=== PATIENT | male | born 1985 | race African-American/Black ===

== ENCOUNTER 2021-11-13 03:41 | Emergency (ER) | payer OTHER ==
[~2021-11-13] VITALS: Ht 177.8 cm; Wt 79.5 kg
[~2021-11-13 03:41] MED LIST: MED FOR NIGHTMARES; MOTRIN 800800 MG/TAB PO; PERCOCET 325 MG1 TA2 PO; PHENERGAN 25 TA25 MG PO
[2021-11-13 03:47] VITALS: TEMP 98.1
[2021-11-13 04:10] LABS: COLLECTION METHOD CLEAN CATCH
[2021-11-13 04:12] VITALS: BP 132/78; PULSE 78
[2021-11-13 04:29] LABS: PH 7 (5-8); SQUAMOUS EPITHELIAL None Seen /hpf (0-10); URINE APPEARANCE Clear (CLEAR/HAZY); URINE BACTERIA None Seen /hpf (NONE SEEN); URINE BILIRUBIN Negative (NEGATIVE); URINE BLOOD 1+ (NEGATIVE); URINE COLOR Yellow (YELLOW); URINE GLUCOSE Negative (NEGATIVE); URINE KETONE Negative (NEGATIVE); URINE LEUKOCYTE ESTERASE Trace (NEGATIVE); URINE NITRATE Negative (NEGATIVE); URINE PROTEIN(semi-quant) Negative (NEGATIVE); URINE RBC 0-2 /hpf (0-2); URINE UROBILINOGEN Negative (NEGATIVE)
[2021-11-13] MEDS ORDERED: SUPRAX400 MG PO (13:08)
== END 2021-11-13 04:12 | disposition home or self-care (01) ==
LOC: COL.ER 03:41 → EDBD 03:41 → COL.ER 04:12
PROVIDERS: Emergency Medicine
DX: R31.9 Hematuria, unspecified (principal)

== ENCOUNTER 2022-01-12 12:06 | Emergency (ER) | payer OTHER ==
[~2022-01-12] VITALS: Ht 177.8 cm; Wt 79.5 kg
[~2022-01-12 12:06] MED LIST changes: +SUPRAX400 MG PO
[2022-01-12 12:10] VITALS: TEMP 97.6
[2022-01-12] MEDS ORDERED: AMOXICILLIN 8751 TAB PO (12:43)
[2022-01-12 13:00] VITALS: BP 151/97; PULSE 62
== END 2022-01-12 13:00 | disposition home or self-care (01) ==
LOC: COL.ER 12:06
DX: S91.032A Puncture wound without foreign body, left ankle, initial encounter (principal); Y04.0XXA Assault by unarmed brawl or fight, initial encounter